=== PATIENT | male | born 1975 | race Caucasian/White ===

== ENCOUNTER 2018-05-26 11:51 | Emergency (ER) | payer MEDICARE ==
[2018-05-26 11:57] VITALS: BP 158/83
[2018-05-26] MEDS ORDERED: oxyCODONE 5 MG TABLET PO STA (12:31)
[2018-05-26] MEDS ORDERED: PENICILLIN VK 250 MG TABLET PO STA (12:31)
[2018-05-26] MEDS ORDERED: IBUPROFEN 800 MG TABLET PO STA (12:31)
--- NOTE | 2018-05-26 12:38 | ED Physician Documentation ---
PD HPI HEENT - Stated complaint Stated Complaint: TOOTH PX - Chief complaint Chief Complaint: Heent - History obtained from History obtained from: Patient, Family - History of Present Illness Timing - onset: Yesterday Timing - duration: Days (2) Timing - details: Gradual onset Pain level max: 8 Pain level now: 8 Location: Tooth (Left canine/premolar, lower) Improves: Nothing Worsens: Other (Chewing, palpation) Associated symptoms: No: Fever, Congestion, Rhinorrhea, Trismus, Unable to swallow, Swollen nodes, Facial swelling, Headache, Cough Similar symptoms before: Other (Dental caries) Recently seen: Not recently seen Review of Systems Constitutional: denies: Fever GI: denies: Vomiting Skin: denies: Rash Neurologic: denies: Headache PD PAST MEDICAL HISTORY - Past Medical History Cardiovascular: Hypertension Respiratory: None Endocrine/Autoimmune: None GI: None HEENT: None Psych: Anxiety Musculoskeletal: None - Past Surgical History Past Surgical History: Yes - Present Medications Home Medications: Ambulatory Orders Medication Instructions Recorded Confirmed Azithromycin [Zithromax] 250 mg PO DAILY #6 tablet 11/08/13 LORazepam [Ativan] 1 mg PRN 11/08/13 11/08/13 Neomycin Powers/Colist/Hc/Thonzon 4 drops LEFTEAR QID #10 ml 11/08/13 [Cortisporin-Tc Ear Susp] Oxycodone HCl/Acetaminophen 11/08/13 11/08/13 [Percocet 10-325 mg Tablet] Oxycodone HCl/Acetaminophen 1 - 2 each PO Q6H PRN #10 tablet 05/26/18 [Percocet 5-325 mg Tablet] Penicillin V Potassium 500 mg PO Q6HR #40 tablet 05/26/18 - Allergies Allergies/Adverse Reactions: Allergies Allergy/AdvReac Type Severity Reaction Status Date / Time acetaminophen [From Vicodin] AdvReac Nausea Verified 05/26/18 11:57 hydrocodone [From Vicodin] AdvReac Nausea Verified 05/26/18 11:57 - Social History Does the pt smoke?: Yes Smoking Status: Current every day smoker Does the pt drink ETOH?: No Does the pt have substance abuse?: No - Immunizations Immunizations are current?: Yes - POLST Patient has POLST: No PD ED PE NORMAL - Vitals Vital signs reviewed: Yes - General General: Alert and oriented X 3, No acute distress - HEENT HEENT: Moist mucous membranes, Other (Very poor dentition throughout, left premolar and canine on the mandible are tender palpation with gingival inflammation but no abscess) - Neck Neck: Supple, no meningeal sign - Cardiac Cardiac: RRR, Strong equal pulses - Respiratory Respiratory: No respiratory distress, Clear bilaterally - Derm Derm: Warm and dry, No rash - Neuro Neuro: Alert and oriented X 3 - Psych Psych: Normal mood, Normal affect Results - Vitals Vitals: Vital Signs - 24 hr 05/26/18 11:55 Temperature 36.9 C Heart Rate 65 Respiratory 17 Rate Blood Pressure 158/83 H O2 Saturation 100 Oxygen O2 Source Room air PD MEDICAL DECISION MAKING - ED course Complexity details: considered differential, d/w patient ED course: Patient with diffuse dental caries. Appears to have gingival swelling, no Matthew's angina. No airway impingement. No trismus. Normal phonation. Will place on antibiotics and pain medication. Will follow up with his dentist tomorrow. Patient counseled regarding signs and symptoms for which I believe and urgent re-evaluation would be necessary. Patient with good understanding of and agreement to plan and is comfortable going home at this time This document was made in part using voice recognition software. While efforts are made to proofread this document, sound alike and grammatical errors may occur. Departure - Departure Disposition: 01 Home, Self Care Clinical Impression: Dental caries Condition: Good Instructions: ED Cavity Dental Follow-Up: your,dentist tomorrow [Other] Prescriptions: Penicillin V Potassium 500 mg PO Q6HR #40 tablet Oxycodone HCl/Acetaminophen [Percocet 5-325 mg Tablet] 1 - 2 each PO Q6H PRN #10 tablet PRN Reason: pain Comments: Take all antibiotics until gone. Return if you worsen. Follow-up with your dentist tomorrow. Do not drink alcohol or drive while on narcotic pain medicine. Note that many narcotic pain relievers also contain tylenol/acetaminophen. Please ensure that your total dose of acetaminophen from all sources does not exceed 3 grams (3000mg) per day. You may constipated on this medication, take a stool softener such as "Colace" twice a day while you are on it. Also recommend a [id number] laxative such as senna or MiraLAX any day that you do not have a bowel movement. If you received narcotic pain medication in the emergency department, do not drive or operate machinery for the next 24 hours. Discharge Date/Time: 05/26/18 12:43
== END 2018-05-26 12:43 | disposition home or self-care (01) ==
LOC: ED 11:51
DX: K02.9 Dental caries, unspecified (principal); I10 Essential (primary) hypertension; F17.200 Nicotine dependence, unspecified, uncomplicated
CPT/HCPCS: 99282; 99283; A9270